=== PATIENT | female | born 1960 | race Caucasian/White ===

== ENCOUNTER 2024-02-08 07:14 | Day surgery (SDC) | payer BC, MEDICAID ==
[~2024-02-08] VITALS: Ht 166.4 cm; Wt 87.3 kg
[~2024-02-08 07:14] MED LIST: ACYC200C PO; ALB0.5UD IH; ALBU18HF2 INH; ALBU2.5V10; ARIP2TAB67 PO; ATOR40TA72 PO; CALC-1260 PO; CHOL20002 PO; DOCU-348 PO; EPIN0.3A3 IM; FERR325T29; FLUO-12 PO; GABA-532 PO; HYDR25TA4 PO; LISI20TA28 PO; LORA10TA7 PO; NAPR-996 PO; OMEP20CA15 PO; SUMA6PEN SQ
[2024-02-08] MEDS ORDERED: MIDAZolam 1 MG/ML 5ML VIAL ONE (07:54)
[2024-02-08] MEDS ORDERED: fentaNYL/PF 50MCG/1 ML 2ML syringe ONE (07:54)
[2024-02-08] MEDS ORDERED: LIDOcaine 2% Viscous 15ml cup ONE (07:54)
[2024-02-08 07:56] VITALS: BP 117/74; PULSE 70; RESP 16
[2024-02-08 08:21] VITALS: BP 120/70; PULSE 68; RESP 14; O2SAT 96
[2024-02-08 08:30] VITALS: BP 108/67; PULSE 65; RESP 19; O2SAT 95
[2024-02-08 08:40] VITALS: BP 124/58; PULSE 64; RESP 13; O2SAT 93
[2024-02-08 08:50] VITALS: BP 112/62; PULSE 65; RESP 15; O2SAT 94
== END 2024-02-08 09:05 | disposition home or self-care (01) ==
LOC: GI LAB 07:14
PROVIDERS: ATTEND Surgery
DX: R13.10 Dysphagia, unspecified (principal); K20.90 Esophagitis, unspecified without bleeding; K29.70 Gastritis, unspecified, without bleeding; K31.89 Other diseases of stomach and duodenum; K25.9 Gastric ulcer, unspecified as acute or chronic, without hemorrhage or perforation
CPT/HCPCS: 43239; 99152; J2250; J3010; J7030; Z7512; A4620

== ENCOUNTER 2024-04-02 07:16 | Day surgery (SDC) | payer BC, MEDICAID ==
[2024-03-27 10:32] LABS: BASOPHILS % (AUTO) 0.8 % (0-1); EOSINOPHILS # (AUTO) 0.2 X10'3 (0-0.9); EOSINOPHILS % (AUTO) 2.9 % (0-6); LYMPHOCYTES # (AUTO) 1.9 X10'3 (1.1-4.8); LYMPHOCYTES % (AUTO) 31.9 % (21-51); MEAN CORPUSCULAR HEMOGLOBIN 31.6 PG (27.0-31.0); MEAN CORPUSCULAR HGB CONC 33.2 g/dL (33.0-36.5); MEAN CORPUSCULAR VOLUME 95.2 FL (78-98); MEAN PLATELET VOLUME 8.2 FL (7.4-10.4); MONOCYTES # (AUTO) 0.5 X10'3 (0-0.9); MONOCYTES % (AUTO) 8.6 % (2-12); NEUTROPHILS # (AUTO) 3.3 X10'3 (1.8-7.7); NEUTROPHILS % (AUTO) 55.8 % (42-75); PRE OP HEMATOCRIT 39.7 % (35.0-45.0); PRE OP HEMOGLOBIN 13.2 g/dL (12.0-16.0); PRE OP PLATELET COUNT 210 X10'3 (140-440); PRE OP WHITE BLOOD COUNT 5.9 10'3 (4.8-10.8); RED BLOOD COUNT 4.17 X10'6 (4.20-5.60); RED CELL DISTRIBUTION WIDTH 13.5 % (11.5-14.5)
[2024-03-27 10:41] LABS: ALBUMIN 4.1 G/DL (3.4-5.0); ALBUMIN/GLOBULIN RATIO 1.2 (1.1-1.5); ALKALINE PHOSPHATASE 97 IU/L (46-116); BLOOD UREA NITROGEN 20 MG/DL (7-18); BUN/CREATININE RATIO 18.2 (10.0-20.0); CALCIUM 9.2 MG/DL (8.5-10.1); CHLORIDE 103 MMOL/L (99-107); PRE OP ALT 33 U/L (30-65); PRE OP ANION GAP 7 (8-16); PRE OP AST 27 U/L (10-37); PRE OP BILIRUB, TOTAL 0.6 MG/DL (0.0-1.0); PRE OP GLUCOSE 103 MG/DL (70-104); PRE OP POTASSIUM 3.6 MMOL/L (3.4-5.1); PRE OP SODIUM 137 MMOL/L (135-145); TOTAL PROTEIN 7.4 G/DL (6.4-8.2); eGFR 50 ML/MIN
[~2024-04-02] VITALS: Ht 165.1 cm; Wt 86.9 kg
[2024-04-02] MEDS: clindamycin-Cleocin 900mg/D5W 50 ML IV ONE (05:30)
[~2024-04-02 07:16] MED LIST changes: -ALBU2.5V10; +ALEN70TA80 PO; -FERR325T29; +FERR325T29 PO; +GABA600T13 PO
[2024-04-02 07:24] VITALS: BP 125/74; PULSE 71; RESP 16; TEMP 99.2; O2SAT 98
[2024-04-02] MEDS: ringers solution, lacted 1,000 ML IV SCH (07:52)
[2024-04-02] MEDS: famotidine 20mg tablet PO ONE (07:52)
[2024-04-02] MEDS ORDERED: fentaNYL/PF 50MCG/1 ML 2ML syringe ONE (08:44)
[2024-04-02] MEDS ORDERED: labetalol 20mg/4ml (5mg/ml) syringe IV PRN (09:00)
[2024-04-02] MEDS ORDERED: ondansetron/PF 4mg/2ml inj IV PRN (09:00)
[2024-04-02] MEDS ORDERED: fentaNYL/PF 50MCG/1 ML 2ML syringe IV PRN ×2 (09:00)
[2024-04-02] MEDS ORDERED: ringers solution, lacted 1,000 ML IV SCH (09:00)
[2024-04-02] MEDS ORDERED: morphine 2 MG/ML inj. syringe IV PRN (09:00)
[2024-04-02] MEDS ORDERED: sevoflurane 250ml liquid IH ONE (09:00)
[2024-04-02] MEDS ORDERED: morphine 4 MG/ML inj SYRINge IV PRN (09:00)
[2024-04-02] MEDS ORDERED: hydrALAZINE 20mg/ml inj. IV PRN (09:00)
[2024-04-02] MEDS ORDERED: MIDAZolam 1 MG/ML 5ML VIAL ONE (09:02)
[2024-04-02] MEDS ORDERED: MIDAZolam 1 MG/ML 5ML VIAL IV ONE (09:05)
[2024-04-02] MEDS ORDERED: succinylcholine 20mg/ml inj IV ONE (09:23)
[2024-04-02] MEDS ORDERED: ondansetron/PF 4mg/2ml inj ONE (09:23)
[2024-04-02] MEDS ORDERED: rocuronium 10mg/ml inj IV ONE (09:23)
[2024-04-02] MEDS ORDERED: LIDOcaine 2% (20mg/ml) 5ml vial ONE (09:24)
[2024-04-02] MEDS ORDERED: propofol inj 20 ML IV ONE (09:24)
[2024-04-02] MEDS ORDERED: neostigmine methylsulfate 1 MG/ML 10ml vial ONE (09:32)
[2024-04-02] MEDS ORDERED: glycopyrrolate 0.2mg/ml inj ONE (09:32)
[2024-04-02 09:50] VITALS: BP 139/80; PULSE 76; RESP 15; O2SAT 100
[2024-04-02 10:00] VITALS: BP 123/59; PULSE 77; RESP 12; O2SAT 100
[2024-04-02 10:10] VITALS: BP 118/60; PULSE 75; RESP 15; O2SAT 100
[2024-04-02 10:20] VITALS: BP 112/64; PULSE 70; RESP 13; O2SAT 94
[2024-04-02 10:30] VITALS: BP 119/66; PULSE 66; RESP 14; O2SAT 95
== END 2024-04-02 10:40 | disposition home or self-care (01) ==
LOC: PAS 07:16
PROVIDERS: ATTEND Surgery
DX: R13.19 Other dysphagia (principal); K44.9 Diaphragmatic hernia without obstruction or gangrene; K21.00 Gastro-esophageal reflux disease with esophagitis, without bleeding; I10 Essential (primary) hypertension; E78.5 Hyperlipidemia, unspecified; F41.9 Anxiety disorder, unspecified; F43.10 Post-traumatic stress disorder, unspecified; F32.A Depression, unspecified; G62.9 Polyneuropathy, unspecified; G43.909 Migraine, unspecified, not intractable, without status migrainosus; Z79.891 Long term (current) use of opiate analgesic; Z79.899 Other long term (current) drug therapy; Z90.89 Acquired absence of other organs; Z90.710 Acquired absence of both cervix and uterus; Z98.51 Tubal ligation status; Z98.890 Other specified postprocedural states; Z88.0 Allergy status to penicillin; Z88.8 Allergy status to other drugs, medicaments and biological substances
CPT/HCPCS: 36415; 43248; 74018; 74360; 80053; 82948; 85025; 93005; J0330; J2250; J2405; J2704; J2710; J3010; J3490; J7120; Z7506; Z7512; 76000; A4618; C1769